=== PATIENT | female | born 1985 ===

== ENCOUNTER 2020-11-29 06:24 | Emergency (ER) | payer SELFPAY ==
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
[2020-11-29 06:26] VITALS: BP 67/0; PULSE 91; RESP 12; TEMP 36.1; O2SAT 98; BMI 25.0
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
[2020-11-29 06:44] VITALS: BP 84/56; PULSE 109; RESP 12; O2SAT 100
[2020-11-29 06:45] VITALS: BP 88/54; PULSE 100; O2SAT 100
--- NOTE | 2020-11-29 06:47 | PC.NURSE ---
nORMAL SALINE BOLUS INFUSING AT THIS TIME. 3RD UNIT OF BLOOD INITIATED AT THIS TIME.
--- NOTE | 2020-11-29 06:50 | PC.NURSE ---
AIR EVAC HERE FOR PATIENT TRANSPORT. TXA COMPLETE AT THIS TIME.
--- NOTE | 2020-11-29 06:59 | PC.NURSE ---
et TUBE 26 AT LIP.
[2020-11-29 07:07] VITALS: RESP 12
[2020-11-29 07:23] VITALS: BP 42/20; PULSE 126; RESP 12; TEMP 36.1; O2SAT 100
[2020-11-29] MEDS: succinylcholine 20 mg/mL SDV 10mL 100 MG IVP (07:41)
[2020-11-29] MEDS: vecuronium 10 mg SDV 6.8039 MG IVP (07:41)
[2020-11-29] MEDS: fentaNYL 50 mcg/mL INJ 2mL IVP (07:42)
[2020-11-29] MEDS: sodium chloride 0.9% 1,000 ML 999 ML IV (07:42)
[2020-11-29] MEDS: sodium chloride 0.9% 1,000 ML 150 ML IV (07:43)
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
[2020-11-29 07:53] LABS: INR 1.79 (0.8-1.2)
[2020-11-29 07:58] LABS: HCG, Serum Qual Negative (Negative)
--- NOTE | 2020-11-29 07:58 | PM.ACPR ---
Procedure/Consent Time out: Time Out Performed: Yes Consent: Consent for Procedure: Emergency procedure Acute Procedures Central Line Placement^: Left SC: Time out performed: Yes Patient placed on monitor/pulse ox: Yes MD prep: mask, gown and gloves Central line prep: Chlorhexidine scrub Ultrasound used for placement: No Central line lumen inserted: triple Post procedure: sutured in place, good blood return and all ports aspirated, flushed, capped Patient tolerated procedure: well Complications: none Epistaxis Control: Time out performed: Yes
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
== END 2020-11-29 07:17 ==
PROVIDERS: Emergency Provider Emergency Medicine
DX: S01.83XA Puncture wound without foreign body of other part of head, initial encounter (principal); S02.609B Fracture of mandible, unspecified, initial encounter for open fracture; X95.9XXA Assault by unspecified firearm discharge, initial encounter; S11.93XA Puncture wound without foreign body of unspecified part of neck, initial encounter; T79.4XXA Traumatic shock, initial encounter; S01.93XA Puncture wound without foreign body of unspecified part of head, initial encounter
CPT/HCPCS: 31500; 36430; 71045; 84703; 85025; 85610; 86900; 86920; 86927; 94002; 94799; 96365; 96375; 99291; C1751; J0330; J3010; J3490; J7030; P9016; P9017